=== PATIENT | female | born 1995 | race Caucasian/White ===

== ENCOUNTER 2022-12-13 12:57 | Emergency (ER) | payer OTHER ==
[2022-12-13 13:02] VITALS: BP 125/77; PULSE 72; RESP 20; TEMP 98.4; BMI 41.9
[2022-12-13] MEDS ORDERED: AMPICILLIN NA/SULBACTAM NA 3 GM in SODIUM CHLORIDE 100 ML IVPB ONE (13:18)
[2022-12-13] MEDS ORDERED: AMPICILLIN NA/SULBACTAM NA 3 GM VIAL ONE (13:41)
[2022-12-13 13:52] LABS: BASO % 0.8 % (0-2.0); EOS % 3.6 % (0-4.5); HEMATOCRIT 40.1 % (32.4-45.2); HEMOGLOBIN 13.4 GM/dL (10.7-15.3); LYMPH % 18.4 % (8-40); MCH 25.3 pg (25.7-33.7); MCHC 33.5 g/dl (32.0-36.0); MEAN CELL VOLUME 75.5 fl (80-96); MEAN PLT VOLUME 7.8 fl (7.5-11.1); MONO % 9.2 % (3.8-10.2); PLATELET COUNT 296 10^3/uL (134-434); RBC 5.31 M/mm3 (3.60-5.2); RDW 14.7 % (11.6-15.6); WHITE BLOOD COUNT 9.4 K/mm3 (4.0-10.0)
[2022-12-13 14:07] LABS: POTASSIUM 4.3 mmol/L (3.5-5.1)
[2022-12-13 14:09] LABS: CALCIUM 8.6 mg/dL (8.5-10.1)
[2022-12-13 14:10] LABS: ALBUMIN 3.5 g/dl (3.4-5.0); BLOOD UREA NITROGEN 11.4 mg/dL (7-18)
[2022-12-13 14:13] LABS: CREATININE 0.6 mg/dL (0.55-1.3)
[2022-12-13 14:14] LABS: BILIRUBIN,TOTAL 0.6 mg/dL (0.2-1); TOT PROT 6.9 g/dl (6.4-8.2)
== END 2022-12-13 14:46 | disposition left against medical advice (07) ==
LOC: JERFT 12:57
DX: S61.452A Open bite of left hand, initial encounter (principal); L03.114 Cellulitis of left upper limb; R22.32 Localized swelling, mass and lump, left upper limb; W54.0XXA Bitten by dog, initial encounter
CPT/HCPCS: 36415; 80053; 84703; 85025; 99284-25

== ENCOUNTER 2022-12-13 19:53 | Emergency (ER) | payer OTHER ==
[2022-12-13 20:12] VITALS: BP 112/68; PULSE 95; RESP 18; TEMP 99.4; BMI 41.9
[2022-12-13] MEDS ORDERED: DALBAVANCIN HCL 1,500 MG in DEXTROSE 5%-WATER - 500 ML IVPB ONE (20:28)
[2022-12-13] MEDS ORDERED: KETOROLAC TROMETHAMINE 15 MG/ML VIAL IVPUSH ONE (20:29)
[2022-12-13] MEDS ORDERED: DALBAVANCIN HCL 500 MG VIAL (RESTRICTED TO ID ONLY) IVPB ONE (21:11)
[2022-12-13] MEDS ORDERED: KETOROLAC TROMETHAMINE 15 MG/ML VIAL ONE (21:21)
[2022-12-13 21:26] LABS: BASO % 0.5 % (0-2.0); EOS % 2.9 % (0-4.5); HEMATOCRIT 39.5 % (32.4-45.2); HEMOGLOBIN 12.8 GM/dL (10.7-15.3); LYMPH % 20.4 % (8-40); MCH 24.9 pg (25.7-33.7); MCHC 32.3 g/dl (32.0-36.0); MEAN CELL VOLUME 77.2 fl (80-96); MEAN PLT VOLUME 8.3 fl (7.5-11.1); MONO % 8.8 % (3.8-10.2); NEUT % 67.4 % (42.8-82.8); PLATELET COUNT 301 10^3/uL (134-434); RBC 5.12 M/mm3 (3.60-5.2); RDW 14.8 % (11.6-15.6); WHITE BLOOD COUNT 10.7 K/mm3 (4.0-10.0)
[2022-12-13 21:47] LABS: ALBUMIN 3.4 g/dl (3.4-5.0); BLOOD UREA NITROGEN 10.7 mg/dL (7-18); CALCIUM 8.2 mg/dL (8.5-10.1)
[2022-12-13 21:50] LABS: CREATININE 0.9 mg/dL (0.55-1.3)
[2022-12-13 21:52] LABS: BILIRUBIN,TOTAL 0.2 mg/dL (0.2-1); TOT PROT 6.6 g/dl (6.4-8.2)
== END 2022-12-13 23:05 | disposition home or self-care (01) ==
LOC: JER 19:53
PROC: 3E03329 Introduction of Other Anti-infective into Peripheral Vein, Percutaneous Approach (ICD-10-PCS; principal; 2022-12-13)
PROC: 3E0333Z Introduction of Anti-inflammatory into Peripheral Vein, Percutaneous Approach (ICD-10-PCS; 2022-12-13)
DX: L03.114 Cellulitis of left upper limb (principal); S61.452D Open bite of left hand, subsequent encounter; M79.642 Pain in left hand; M79.9 Soft tissue disorder, unspecified; W54.0XXD Bitten by dog, subsequent encounter; Y93.9 Activity, unspecified; Y92.9 Unspecified place or not applicable
CPT/HCPCS: 36415; 73130-TC-LT-FY; 80053; 85025; 86140; 99284-25; J0875